=== PATIENT | male | born 2000 | race Caucasian/White ===

== ENCOUNTER 2025-01-30 07:48 | Emergency (ER) | payer OTHER, SELFPAY ==
[2025-01-30] VITALS (7 sets, daily range): BP systolic 136–172; BP diastolic 79–107; BMI 36.7
[2025-01-30 08:12] LABS: % Basophils 0.8 % (0-2); % Eosinophils 5.8 % (0-6); % Immature Granulocytes 0.2 % (0-0.5); % Lymphocytes 22.1 % (20.5-51.1); % Monocytes 9.5 % (1.7-9.3); % Neutrophils 61.6 % (42.2-75.2); Absolute Eosinophils 0.3 10^3/uL (0-0.7); Absolute Lymphocytes 1.1 10^3/uL (1.2-3.4); Absolute Monocytes 0.5 10^3/uL (0.1-0.6); Hematocrit 43.8 % (39.0-52.0); Hemoglobin 15.3 g/dL (13.0-18.0); Mean Corp Hgb Conc. 34.9 g/dL (33.0-37.0); Mean Corpuscular Hgb 29.9 pg (27.0-31.0); Mean Corpuscular Volume 85.5 fL (80.0-94.0); Mean Platelet Volume 10.2 fL (7.4-10.4); Nucleated Red Blood Cells % 0 % (-); Platelet Count 173 10^3/uL (130-400); Red Blood Cell Count 5.12 10^6/uL (4.70-6.10); Red Cell Dist. Width 12.6 % (11.5-14.5); White Blood Cell Count 4.8 10^3/uL (4.8-10.8)
[2025-01-30 08:27] LABS: ALT (SGPT) 24 U/L (0-50); AST (SGOT) 38 U/L (17-59); Albumin 3.8 g/dl (3.5-5.0); Alkaline Phosphatase 54 U/L (38-126); Blood Urea Nitrogen 14 mg/dl (9-20); Calcium 8.9 mg/dl (8.4-10.2); Carbon Dioxide 26 mmol/L (22-30); Chloride 108 mmol/L (98-107); Estimated Creatinine Clearance > 125 ml/min; Glucose 113 mg/dl (70-99); Potassium 4.4 mmol/L (3.5-5.1); Sodium 140 mmol/L (135-145); Total Bilirubin 0.6 mg/dl (0.2-1.3); Total Protein 6.2 g/dl (6.3-8.2); eGFR > 60.00
--- NOTE | 2025-01-30 08:33 | ED.GENMED ---
History of Present Illness
General
Chief Complaint: Headache
Source: patient
Exam Limitations: none
Time Seen by Provider: 01/30/25 08:15
History of Present Illness
History of Present Illness:
24-year-old male nontraumatic posterior neck pain extending up to the head above the ears bilaterally. Associated with some mild disequilibrium. No vertigo. No nausea or vomiting no other neurologic symptoms. No history of same. Feels somewhat
like a muscular neck pain that he has had previously however the disequilibrium is slightly different. No sudden pain no whiplash no chiropractic manipulation
Past History
Past History
ED Past Medical History: None
ED Past Surgical History: Orthopedic
Review of Systems
Review of Systems
All Other Systems: Not applicable
Constitutional: Denies fever
Neurological: Denies weakness or numbness
Phy Exam
Physical Exam
Physical Exam:
GENERAL: Alert and oriented in no apparent distress
EYE: Orbits normal.
NECK: Supple, no carotid bruit
ENT: Pharynx without erythema
CARDIAC: Regular rate and rhythm without any obvious murmurs.
LUNGS: Clear breath sounds,normal
ABDOMEN: Soft, without focal tenderness or distention
NEUROLOGICAL: Alert and oriented , cranial nerves II through XII intact. Speech normal. [id number] normal. Geqo-bi-[id number] normal. No drift. Light touch intact.
SKIN: Warm and dry, no rash or lesion, no discoloration, skin intact.
MUSCULOSKELETAL: No edema,no deformity.Good color
PSYCH: Normal and appropriate interaction.
Course
Orders/Labs/Results
Orders:
Orders
01/30/25 07:55
Electrocardiogram (*1) Urgent
Reason for Study: Vertigo / Dizzy
EKG- Treatment ONCE
01/30/25 08:06
CMP [Comprehensive Metabolic Panel] Urgent
Complete Blood Count/With Diff Urgent
Erythrocyte Sed Rate Urgent
Comment: ADD ON
01/30/25 08:32
Add On- LAB Urgent
Tests Added?: esr
CT Head & Neck Angio W/wo IV Urgent
Comment:
Reason For Exam: Nontraumatic headache/neck pain/disequilibrium
Cardiac Monitoring- Treatment ONCE
IV Insert/Care/Rem.- Treatment PRN
0.9% Sodium Chloride 500 ml [Nss] 500 ml IV BOLUS
01/30/25 09:49
Ketorolac [Toradol] 15 mg IV NOW STA
01/30/25 11:48
Cyclobenzaprine HCl [Flexeril] 10 mg PO NOW STA
Abnormal Lab Results
01/30/25
08:06
Absolute Lymphs (auto) 1.1 L 10^3/uL
(1.2-3.4)
Monocytes % 9.5 H %
(1.7-9.3)
Chloride 108 H mmol/L
(98-107)
Glucose 113 H mg/dl
(70-99)
Total Protein 6.2 L g/dl
(6.3-8.2)
01/30/25 08:06
01/30/25 08:06
Vital Signs
Initial and Last Documented VS:
Initial Vital Signs
Temp Pulse Resp BP Pulse Ox
98.1 F 79 20 172/107 100
01/30/25 07:50 01/30/25 07:50 01/30/25 07:50 01/30/25 07:50 01/30/25 07:50
Last Documented Vital Signs
Temp Pulse Resp BP Pulse Ox
98.1 F 77 19 139/80 99
01/30/25 07:50 01/30/25 11:45 01/30/25 11:45 01/30/25 11:00 01/30/25 11:45
MDM/Problems Addressed
Differential Diagnosis Includes:
Patient describing nontraumatic bilateral posterior neck pain with some headache and slight disequilibrium. No trauma. Although this may all be musculoskeletal with a disequilibrium would have to consider dissection or posterior circulation
thrombus. Neurologic exam is intact. Labs CT angio pending. Not describing a thunderclap type headache.
*Radiology
Radiology exam reviewed: radiology read reviewed (Negative study)
*Pulse Oximetry
Patient hypoxic: no
*EKG
Interpreted by ED Provider?: Yes
Interpretation: normal
Comparison EKG: no comparison EKG present
Heart Rate: 69
Rate: normal
Rhythm: sinus
[place]: normal axis
Interval: normal interval
QRS Pattern: normal QRS
Ischemia: no ischemia
*Critical Care Note
Total Time (30-74mins, 75-104mins- exclusive of procedures): Not Applicable
Update Note
Update Note:
Patient has remained medically stable and nontoxic. States he is feeling moderately improved. Only has pain with head movement. Serious etiologies have been ruled out in my opinion. Likely musculoskeletal. Discharged to follow-up
ED Attending Note
-
Portions of this chart may have been created with voice recognition software.� Occasional wrong word or��sound alike� substitutions may have occurred due to the inherent limitations of voice recognition software.
Discharge Plan
Departure
Patient Disposition: Home (Routine Discharge)
Date of Disposition: 01/30/25
Time of Disposition: 11:45
Patient with high blood pressure during this ER visit?: Yes
Discharge Problem:
Posterior neck pain/headache
Instructions: Headache, Adult (DC), Neck pain - ED discharge instructions, BLOOD PRESSURE
Prescriptions:
New
cyclobenzaprine 10 mg tablet
10 mg PO TID PRN (Reason: muscle spasm) Qty: 14 0RF
Referrals:
Apolinar Adair MD [Family Provider] - Follow up in 2-3 days
Activity Restrictions/Additional Instructions:
Advil or Motrin for pain. You can also add Tylenol
Only use the muscle relaxer if you feel it helps
Interventions
Interventions:
*Risk Screen - Suicide Last Done: 01/30/25 07:50
*General Assessment Last Done: 01/30/25 07:50
*Neglect/Abuse Screening Last Done: 01/30/25 07:50
*ED- Fall Risk Assessment Last Done: 01/30/25 08:25
*ED COVID-19 Vaccine History Last Done: 01/30/25 07:57
ED- Neurological Assessment Last Done: 01/30/25 08:25
Discharge Date and Time
Print Language: YI
[2025-01-30] MEDS: NSS 500 IV (08:37)
[2025-01-30] MEDS: TORADOL 15 MG IV (09:53)
[2025-01-30 10:22] LABS: Erythrocyte Sed Rate 9 mm/hour (0-20)
[2025-01-30] MEDS: FLEXERIL 10 MG PO (11:54)
== END 2025-01-30 12:00 | disposition home or self-care (01) ==
LOC: EMR 07:48
PROVIDERS: Student in an Organized Health Care Education/Training Program; EMERGENCY PHYSICIAN Emergency Medicine; FAMILY PHYSICIAN Family Medicine
DX: R51.9 Headache, unspecified (principal); M54.2 Cervicalgia; R42 Dizziness and giddiness; K62.5 Hemorrhage of anus and rectum; R03.0 Elevated blood-pressure reading, without diagnosis of hypertension
CPT/HCPCS: 99285; 96361 ×2; 96374; 70496; 70498; 80053; 85025; 85652; 93005; Q9967